=== PATIENT | male | born 1955 | race Caucasian/White ===

== ENCOUNTER → 2017-05-29 | Day surgery (SDC) | payer BC ==
[~2017-05-29] MED LIST: Propofol 200 MG/20 ML SDV IV ONE
[2017-05-29] MEDS: Lactated Ringers 1,000 ML IV SCH (11:12)
--- NOTE | 2017-06-01 08:15 | OR ---
DATE OF OPERATION: 05/29/2017 PREOPERATIVE DIAGNOSIS: SCREENING COLONOSCOPY. POSTOPERATIVE DIAGNOSIS: SCREENING COLONOSCOPY. SURGEON: Raul Nolasco MD PROCEDURE: FULL-LENGTH COLONOSCOPY WITH POLYP REMOVAL X1. ANESTHESIA: TUBE SKIVER. COMPLICATIONS: None. SPECIMEN: Small hyperplastic polyp, ascending colon. FINDINGS: 1. Full-length colonoscopy. 2. Small hyperplastic polyp, ascending colon. RECOMMENDATIONS: Follow up colonoscopy, pending path report. INDICATIONS: The patient was in for a physical with Lorraine Combs, his primary provider. He never had a screening colonoscopy. She recommended it due to his age. DESCRIPTION OF PROCEDURE: The patient was prepped and draped, placed in the left lateral decubitus position. A lubricated Olympus colonoscope was inserted and easily advanced to the cecum. Direct visualization of the ileocecal valve and appendiceal orifice was accomplished. The bowel prep was adequate. Upon withdrawal of the scope, the cecum and proximal ascending colon were benign. In the mid ascending colon, the patient had a small, flat, sessile polyp likely hyperplastic, removed in its entirety with 2 cold forceps biopsies. The rest of the ascending and transverse colon were benign. Throughout the entire left colon, I could find no signs of any polyps, mass, ulceration, or bleeding sites. No vascular abnormalities or signs of colitis. There were no significant diverticula. The rectal vault was benign. Retroflexion of the scope in the rectum showed no anal lesions. Air was suctioned, scope removed without complication. NOAH/PAWEL /[id number]
== END ==
LOC: CC.SDS 10:59
PROVIDERS: ATTEND Family Medicine
DX: Z12.11 Encounter for screening for malignant neoplasm of colon (principal); D12.2 Benign neoplasm of ascending colon; I48.91 Unspecified atrial fibrillation; G47.19 Other hypersomnia; N52.9 Male erectile dysfunction, unspecified; Z79.899 Other long term (current) drug therapy
CPT/HCPCS: J2704; J7120

== ENCOUNTER 2020-05-15 08:59 | Emergency (ER) | payer BC, OTHER ==
--- NOTE | 2020-05-15 09:24 | EDM.PDOC ---
ED HPI GENERAL MEDICAL PROBLEM - General Stated Complaint: FEEL OUT OF SORTS/SWEATING/DIZZY Time Seen by Provider: 05/15/20 09:24 Source of Information: Reports: Patient History Limitations: Reports: No Limitations - History of Present Illness INITIAL COMMENTS - FREE TEXT/NARRATIVE: Girish is a 65 yo male who presents to the ED with c/o an episode of dizziness and "feeling out of sorts." He reports upon awakening this morning he just felt off. He reports it is difficult to describe the dizziness but he feels like things are moving around him. He reports he then got "kind of anxious" and felt like he was having a hard time taking a deep breath. Reports this lasted a few minutes and then resolved. He denies any chest pain, ongoing shortness of breath, N/V/D, headache. He does feel that since arrival to the ED he is feeling better. No additional complaints. He reports for the last 6 months he has only been eating 1 meal a day and this is at 3 in the afternoon. He therefore has not eaten or drank anything today. Onset: Today Duration: Improving Location: Reports: Generalized - Related Data Allergies Allergy/AdvReac Type Severity Reaction Status Date / Time No Known Allergies Allergy Verified 05/15/20 09:31 Home Meds: Home Meds Meclizine [Antivert] 25 mg PO Q6H PRN #30 tab 05/15/20 [Rx] ED ROS GENERAL - Review of Systems Review Of Systems: Comprehensive ROS is negative, except as noted in HPI. ED EXAM, DIZZINESS - Physical Exam Exam: See Below Exam Limited By: No Limitations General Appearance: Alert, WD/WN, No Apparent Distress Eye Exam: Bilateral Eye: EOMI, Normal Fundi, Normal Inspection, PERRL Nystagmus: No: reproducible Ears: Normal External Exam, Normal Canal, Hearing Grossly Normal, Normal TMs Nose: Normal Inspection, Normal Mucosa, No Blood Throat/Mouth: Normal Inspection, Normal Lips, Normal Teeth, Normal Gums, Normal Oropharynx, Normal Voice, No Airway Compromise Head Exam: Atraumatic, Normocephalic Vertigo: No: reproducible (has since resolved) Neck: Normal Inspection, Supple, Non-Tender, Full Range of Motion Respiratory/Chest: No Respiratory Distress, Lungs Clear, Normal Breath Sounds, No Accessory Muscle Use, Chest Non-Tender Cardiovascular: Normal Peripheral Pulses, Regular Rate, Rhythm, No Edema, No Gallop, No JVD, No Murmur, No Rub GI/Abdominal: Normal Bowel Sounds, Soft, Non-Tender, No Organomegaly, No Distention, No Abnormal Bruit, No Mass Neurological: Alert, Normal Mood/Affect, Normal Dorsiflexion, CN II-XII Intact, Normal Plantar Flexion, Normal Gait, Normal Reflexes, No Motor/Sensory Deficits, Oriented x 3 Back Exam: Normal Inspection, Full Range of Motion, NT Extremities: Normal Inspection, Normal Range of Motion, Non-Tender, No Pedal Edema, Normal Capillary Refill Psychiatric: Anxious Skin Exam: Warm, Dry, Intact, Normal Color, No Rash Course - Vital Signs Last Recorded V/S: Last Vital Signs Temp 98.0 F 05/15/20 09:16 Pulse 84 05/15/20 09:16 Resp 20 05/15/20 09:16 BP 137/92 H 05/15/20 09:16 Pulse Ox 100 05/15/20 09:16 - Orders/Labs/Meds Orders: Active Orders 24 hr Category Date Time Status Head wo Cont [CT] Stat Exams 05/15/20 09:07 Taken Labs: Laboratory Tests 05/15/20 05/15/20 05/15/20 Range/Units 09:17 09:17 09:44 WBC 6.3 (5.0-10.0) 10^3/uL RBC 5.06 (4.50-6.00) 10^6/uL Hgb 16.0 (14.0-18.0) g/dL Hct 46.2 (40.0-54.0) % MCV 91.3 (82.0-94.0) fL MCH 31.6 (27.0-32.0) pg MCHC 34.6 (33.0-38.0) g/dL RDW Coeff of Indu 13.5 (11.0-15.0) % Plt Count 189 (150-400) 10^3/uL Neut % (Auto) 51.7 (35-85) % Lymph % (Auto) 37.4 (10-55) % [place] % (Auto) 8.7 (0-16) % Eos % (Auto) 1.9 (0-5) % Baso % (Auto) 0.3 (0-3) % Neut # (Auto) 3.25 (1.80-7.00) 10^3/uL Lymph # (Auto) 2.35 (1.00-4.80) 10^3/uL [place] # (Auto) 0.55 (0.00-0.80) 10^3/uL Eos # (Auto) 0.12 (0.00-0.45) 10^3/uL Baso # (Auto) 0.02 10^3/uL Sodium 141 (136-145) mEq/L Potassium 4.9 (3.5-5.0) mEq/L Chloride 105 (98-106) mEq/L Carbon Dioxide 26 (21-32) mmol/L BUN 12 (7-18) mg/dL Creatinine 1.0 (0.7-1.3) mg/dL Est Cr Clr Drug Dosing 84.34 mL/min Estimated GFR (MDRD) > 60 (>=60) mL/min Glucose 92 (75-99) mg/dL Calcium 9.6 (8.4-10.1) mg/dL Total Bilirubin 1.1 H (0.0-1.0) mg/dL AST 23 (15-37) U/L ALT 34 (12-78) U/L Alkaline Phosphatase 63 (46-116) U/L Lactate Dehydrogenase 118 (100-190) U/L Creatine Kinase 47 (35-232) U/L Troponin I < 0.017 (0.00-0.06) ng/mL Total Protein 6.8 (6.4-8.2) g/dL Albumin 3.6 (3.4-5.0) g/dL Urine Color Yellow (YELLOW) Urine Appearance Clear (CLEAR) Urine pH 6.0 (4.5-8.0) Ur Specific [place] 1.025 H (1.003-1.020) Urine Protein Negative (NEGATIVE) mg/dL Urine Glucose (UA) Negative (NEGATIVE) mg/dL Urine Ketones 15 H (NEGATIVE) mg/dL Urine Occult Blood Negative (NEGATIVE) Urine Nitrite Negative (NEGATIVE) Urine Bilirubin Negative (NEGATIVE) Urine Urobilinogen 0.2 (0.2-1.0) EU/dL Ur Leukocyte Esterase Negative (NEGATIVE) - Re-Assessments/Exams Free Text/Narrative Re-Assessment/Exam: PLEASE SEE NURSES NOTE FOR PMH, PSH, SH & FH. Departure - Departure Time of Disposition: 10:09 Disposition: Home, Self-Care 01 Condition: Good Clinical Impression: Vertigo - Discharge Information *PRESCRIPTION DRUG MONITORING PROGRAM REVIEWED*: Not Applicable *COPY OF PRESCRIPTION DRUG MONITORING REPORT IN PATIENT [place]: Not Applicable Prescriptions: Meclizine [Antivert] 25 mg PO Q6H PRN #30 tab PRN Reason: Dizziness Instructions: Vertigo, [id number], Dizziness, [id number] Additional Instructions: - Labs, EKG and Head CT all look good - No obvious cause of dizziness identified - June trial Meclizine 1 tablet as needed for dizziness - Recommend eating something in the morning if feeling dizzy/faint - Follow up with Lorraine Combs for recheck if symptoms worsen or persist - Return to ED for any emergent issues/needs Sepsis Event Note (ED) - Evaluation Sepsis Screening Result: No Definite Risk - Focused Exam Vital Signs: Vital Signs Temp Pulse Resp BP Pulse Ox 05/15/20 09:16 98.0 F 84 20 137/92 H 100 - Problem List & Annotations (1) Dizziness SNOMED Code(s): 409340437, 273392791 Code(s): R42 - DIZZINESS AND GIDDINESS Status: Acute (2) Vertigo SNOMED Code(s): 222411648 Code(s): R42 - DIZZINESS AND GIDDINESS Status: Acute - My Orders Last 24 Hours: My Active Orders 05/15/20 09:07 Head wo Cont [CT] Stat - Assessment/Plan Last 24 Hours: My Active Orders 05/15/20 09:07 Head wo Cont [CT] Stat Assessment:: Vertigo Dizziness Plan: Symptoms resolved while in ED. [place] negative. Labs, EKG and head CT all unremarkable. Patient will be discharged home. He can use Meclizine as needed. He is advised to follow up with his PCP for a recheck if symptoms persist or worsen.
[2020-05-15 09:39] LABS: CHLORIDE,CL 105 mEq/L (98-106); SODIUM,NA 141 mEq/L (136-145)
== END 2020-05-15 10:40 | disposition home or self-care (01) ==
LOC: CC.ED 08:59
DX: R42 Dizziness and giddiness (principal)
CPT/HCPCS: 36415; 70450; 80053; 81003; 82550; 83615; 84484; 85025; 93005; 99284-25